=== PATIENT | female | born 1970 | race Caucasian/White ===

== ENCOUNTER 2017-05-21 17:05 | Emergency (ER) | payer OTHER, BC ==
[~2017-05-21] VITALS: Ht 154.9 cm; Wt 88.5 kg
--- NOTE | 2017-05-21 17:32 | Urgent Treatment Center Report ---
History of Present Issue Date/Time Seen by Provider 05/21/17 3252 Visit Reason Pt arrived:Walked Presenting Problem:PT STATES SHE INJURED HER RT SHOULDER LIFTING A BAG OF TRASH AT WORK Location if Accident:Work Onset of symptoms date/time:03/30/17/ or onset unknown for:MEDICAL HX UNKNOWN Have you (or family members/close friends) recently traveled outside the [place]? N If Yes, where/when: Have you had exposure to infectious disease within the past month? TB? Other? Specify: c/o needing right shoulder examined due to old [employer] injury. No pain, limited ROM, N/T or any other symptoms presently "but the savage at [employer] told me I still needed examined for the record". Pt's PCP does not do [employer] "so I didn't know where else to come". injury 03/30, a . Reports she was throwing trash in a bin because unable to get to dumpster at that time. Immediate right shoulder pain (unable to localize where) after throwing a bag. Ibuprofen that evening and co-worker do all lifting the next day. Was off for the weekend and pain Better by Sunday "just with rest and ibuprofen". No symptoms since. Reporting it took her "some time" to get [employer] forms and find someone who sees [employer]. Pt didn't think she needed seen since symptoms resolved but was encouraged otherwise bu [employer] personnel Source patient Exam Limitations no limitations History Medical History General CAD? No Angina: No PR: No Hypertension? No Hyperlipidemia? No CHF? No DVT? No PE? No COPD? No Asthma? No Anemia? No GERD? No Gastric ulcers? No GI Bleed? No Hernia? No Thyroid Problems? No Hypothyroidism? No CVA? No Seizures? No Diabetes? No Renal Insuffiency? No UTI? No Stones? No BPH? No GB Disease: No Nephritic Syndrome? No Asplenia? No Hepatitis? No Sickle Cell Disease? No Arthritis? No Migraines? No Cataracts? No Glaucoma? No MRSA? No HIV? No TB? No Depression? No More? No Immunization HX DT/Tetanus 1-4 Years Ago Surgical Hx Previous Surgery?N Social History Smoking Hx Smoker: Never Smoker Tobacco: No Alcohol Alcohol: No Review of Systems All Other Systems Reviewed and Negative (as appropriate for CC) Musculoskeletal see HPI, denies joint pain, denies joint swelling, denies muscle pain, denies muscle stiffness, denies neck pain Skin denies change in color, denies lesions, denies lumps Psychiatric/Neurological denies numbness, denies paresthesia, denies tingling, denies weakness Physical Exam Vital Signs Vital Signs Date Time Temp Pulse Resp B/P Pulse O2 O2 Flow FiO2 Ox Delivery Rate 05/21 1829 97.9 82 20 138/98 97 05/21 1724 97.9 82 20 138/98 97 05/21 1721 97.9 82 20 138/98 97 General Appearance normal appearance, no apparent distress, reading a book Respiratory Status Yes: chest symmetrical, non tender chest. No: respiratory distress. Cardiovascular no peripheral edema Peripheral Pulses Pulses normal Yes (radial) Back normal inspection, no vertebral tenderness, gait normal, no back tenderness Extremities non-tender (throughout rt shoulder and UE), normal range of motion ( right shoulder, elbow, wrist), normal inspection (right shoulder and UE), "maybe a little stretching" pt reports in rt posterior shoulder w/ max forward flexion. Tried left shoulder and "I think the stretching might be a little worse on the right" Strength 5 Upper Ext (L) (pocket stitcher 5/5), 5 Upper Ext (R) (pocket stitcher 5/5) Neurologic alert, no motor/sensory deficits, oriented x 3 Skin intact, normal color, warm/dry Comments essentially normal musculoskeletal exam right shoulder/UE Medical Decision Making LABS/Meds/Orders Pt receiving controlled substance in ED? No Departure Departure Time of Disposition 1814 Disposition DC Home or Self Care(routine) Clinical Impression Primary Impression: Work related injury Condition STABLE Referrals ZHANG QURESHI APRN Follow up if symptoms return as further workup will be required at that time. Patient Instructions DI for Shoulder Pain Additional Instructions Since you are having no symptoms, follow up if symptoms return. No work retrictions Discharge Counseling Counseled pt/family regarding diagnosis, home care, follow up needs at [phone]
--- NOTE | 2017-05-21 17:32 | Urgent Treatment Center Report ---
History of Present Issue Date/Time Seen by Provider 05/21/17 4612 Visit Reason Pt arrived:Walked Presenting Problem:PT STATES SHE INJURED HER RT SHOULDER LIFTING A BAG OF TRASH AT WORK Location if Accident:Work Onset of symptoms date/time:03/30/17/ or onset unknown for:MEDICAL HX UNKNOWN Have you (or family members/close friends) recently traveled outside the [place]? N If Yes, where/when: Have you had exposure to infectious disease within the past month? TB? Other? Specify: c/o needing right shoulder examined due to old [employer] injury. No pain, limited ROM, N/T or any other symptoms presently "but the savage at [employer] told me I still needed examined for the record". Pt's PCP does not do [employer] "so I didn't know where else to come". injury 03/30, a . Reports she was throwing trash in a bin because unable to get to dumpster at that time. Immediate right shoulder pain (unable to localize where) after throwing a bag. Ibuprofen that evening and co-worker do all lifting the next day. Was off for the weekend and pain Better by Sunday "just with rest and ibuprofen". No symptoms since. Reporting it took her "some time" to get [employer] forms and find someone who sees [employer]. Pt didn't think she needed seen since symptoms resolved but was encouraged otherwise bu [employer] personnel Source patient Exam Limitations no limitations History Medical History General CAD? No Angina: No AK: No Hypertension? No Hyperlipidemia? No CHF? No DVT? No PE? No COPD? No Asthma? No Anemia? No GERD? No Gastric ulcers? No GI Bleed? No Hernia? No Thyroid Problems? No Hypothyroidism? No CVA? No Seizures? No Diabetes? No Renal Insuffiency? No UTI? No Stones? No BPH? No GB Disease: No Nephritic Syndrome? No Asplenia? No Hepatitis? No Sickle Cell Disease? No Arthritis? No Migraines? No Cataracts? No Glaucoma? No MRSA? No HIV? No TB? No Depression? No More? No Immunization HX DT/Tetanus 1-4 Years Ago Surgical Hx Previous Surgery?N Social History Smoking Hx Smoker: Never Smoker Tobacco: No Alcohol Alcohol: No Review of Systems All Other Systems Reviewed and Negative (as appropriate for CC) Musculoskeletal see HPI, denies joint pain, denies joint swelling, denies muscle pain, denies muscle stiffness, denies neck pain Skin denies change in color, denies lesions, denies lumps Psychiatric/Neurological denies numbness, denies paresthesia, denies tingling, denies weakness Physical Exam Vital Signs Vital Signs Date Time Temp Pulse Resp B/P Pulse O2 O2 Flow FiO2 Ox Delivery Rate 05/21 1829 97.9 82 20 138/98 97 05/21 1724 97.9 82 20 138/98 97 05/21 1721 97.9 82 20 138/98 97 General Appearance normal appearance, no apparent distress, reading a book Respiratory Status Yes: chest symmetrical, non tender chest. No: respiratory distress. Cardiovascular no peripheral edema Peripheral Pulses Pulses normal Yes (radial) Back normal inspection, no vertebral tenderness, gait normal, no back tenderness Extremities non-tender (throughout rt shoulder and UE), normal range of motion ( right shoulder, elbow, wrist), normal inspection (right shoulder and UE), "maybe a little stretching" pt reports in rt posterior shoulder w/ max forward flexion. Tried left shoulder and "I think the stretching might be a little worse on the right" Strength 5 Upper Ext (L) (senior web applications developer 5/5), 5 Upper Ext (R) (senior web applications developer 5/5) Neurologic alert, no motor/sensory deficits, oriented x 3 Skin intact, normal color, warm/dry Comments essentially normal musculoskeletal exam right shoulder/UE Medical Decision Making LABS/Meds/Orders Pt receiving controlled substance in ED? No Departure Departure Time of Disposition 1814 Disposition DC Home or Self Care(routine) Clinical Impression Primary Impression: Work related injury Condition STABLE Referrals ZHANG QURESHI APRN Follow up if symptoms return as further workup will be required at that time. Patient Instructions DI for Shoulder Pain Additional Instructions Since you are having no symptoms, follow up if symptoms return. No work retrictions Discharge Counseling Counseled pt/family regarding diagnosis, home care, follow up needs at [phone]
[2017-05-21 18:29] VITALS: BP 138/98
== END 2017-05-21 18:30 | disposition home or self-care (01) ==
LOC: UTC 17:05
DX: M25.511 Pain in right shoulder (principal); X50.0XXA Overexertion from strenuous movement or load, initial encounter; Y92.69 Other specified industrial and construction area as the place of occurrence of the external cause